=== PATIENT | male | born 1985 | race Caucasian/White ===

== ENCOUNTER 2023-06-07 14:54 | Outpatient (AMB) | payer OTHER, SELFPAY ==
--- NOTE | 2023-06-07 14:57 | MHC.OFFWIV ---
Intake Vital Signs 06/07/23 14:59 Height 6 ft Weight 190 lb BMI 25.8 BP 138/82 Blood Pressure Location Lt brachial Position Sitting Pulse 117 H Pulse Source Pulse Oximeter Pulse Oximetry (%) 97 Oxygen Delivery Method Room Air Intake Visit Reasons: [employer] Step on nail Intake Note: pt is here for nail scrap on foot Patient Tobacco Use Status: Never used Tobacco Allergies penicillamine Allergy (Mild, Verified 06/07/23 14:57) Hives Do you need a note to return to daycare/school/sports/work: No HPI HPI Comments History of Present Illness Details 37 y/o male patient who presents to walk in clinic with c/o puncture wound left foot plantar. Reports that a nail scrapped the bottom of his left foot today. Reports that there was some bleeding, and since stopped. Reports cleaning the wound with soap water and applied bandage after. Last T[facility] immunization was 2014[facility] Social History Patient Tobacco Use Status: Never used Tobacco Review of Systems Const All systems reviewed & are unremarkable except as noted in HPI and below Physical Exam Vital Signs: Last Vital Signs Pulse 117 H 06/07/23 14:59 BP 138/82 06/07/23 14:59 Pulse Ox 97 06/07/23 14:59 Oxygen Delivery Method Room Air 06/07/23 14:59 BMI result Body Mass Index 25.8 Const Orientation/consciousness: patient oriented x3 Neuro General: patient oriented x3, gait normal and moves all extremities Extrem Right lower extremity: normal to inspection and full ROM Left lower extremity: foot Details: normal capillary refill, toes with normal ROM, no edema and puncture wound (Left foot plantar. Small opening covered with skin. No bleeding. Wound clean.) Psych Speech and movement: Normal speech and movement present Assessment & Plan Assessment & Plan (1) Puncture wound of skin from metal nail: Code(s): W45.0XXA - Nail entering through skin, initial encounter Plan: - Small skin opening (very superficial), no need for Proph Abx at this time. - Will Administer Tdap today. Orders: Orders TDaP Immunization Today Z23 - Encounter for immunization Coding Level of Care Code New Pt Level 3 (72211) Diagnoses Puncture wound of skin from metal nail W45.0XXA Time Spent (min) 15
[2023-06-07 14:59] VITALS: BP 138/82; PULSE 117; O2SAT 97; BMI 25.8
== END 2023-06-07 15:59 | disposition home or self-care (01) ==
PROVIDERS: Visit Provider Nurse Practitioner Family
DX: S91.332A Puncture wound without foreign body, left foot, initial encounter (principal); W45.0XXA Nail entering through skin, initial encounter
CPT/HCPCS: 90471; 90715; 99203